=== PATIENT | male | born 1985 | race African-American/Black ===

== ENCOUNTER 2018-08-27 09:59 | Emergency (ER) | payer BC ==
[~2018-08-27] VITALS: Ht 180.3 cm; Wt 129.3 kg
[2018-08-27] MEDS ORDERED: HYDROCODONE/APAP 5MG-325MG TAB PO ONE (10:15)
[2018-08-27] MEDS ORDERED: KETOROLAC TROMETHAMINE 60 MG/2 ML VIAL IM ONE (10:15)
--- NOTE | 2018-08-27 11:23 | Diagnostic Imaging Report ---
Exam: Right knee radiographs-3 views; left knee radiographs-3 views History: Status post fall. Comparison: None. Findings: No evidence of acute fracture, malalignment, joint effusion, or soft tissue abnormality in the bilateral knees. There are minimal medial compartment degenerative changes in the right knee. Impression: No acute radiographic abnormality. Signed by: Dr. Barbara Garner MD on 08/27/2018 11:19 AM
== END 2018-08-27 12:43 | disposition home or self-care (01) ==
LOC: FSED 09:59
DX: M25.562 Pain in left knee (principal); M25.561 Pain in right knee; S83.412A Sprain of medial collateral ligament of left knee, initial encounter; S83.411A Sprain of medial collateral ligament of right knee, initial encounter; W17.89XA Other fall from one level to another, initial encounter; Y92.488 Other paved roadways as the place of occurrence of the external cause
CPT/HCPCS: 73562 ×2; 99284; J1885